=== PATIENT | male | born 1980 | race Caucasian/White ===

== ENCOUNTER 2017-02-17 00:27 | Emergency (ER) | payer OTHER ==
[~2017-02-17] VITALS: Ht 175.3 cm; Wt 99.8 kg
--- NOTE | 2017-02-17 00:29 | ER Report ---
History and Physical Time Seen By MD: 00:43 HPI/ROS CHIEF COMPLAINT: Left lower leg injury HISTORY OF PRESENT ILLNESS: 36-year-old male presents ambulatory to the ER complaining of left lower leg pain. He states he was horsing around with friends when he lost his balance and fell to the ground injuring his left leg. He notes pain on the lateral side of his leg. He notes pain with ambulating. Patient notes no swelling. He denies any other injuries. Allergies: Uncoded Allergies: Hayfever (Allergy, Mild, UNKNOWN, 05/08/11) Home Meds Reported Medications Dexlansoprazole (DEXILANT) 30 Mg Cap., 30 MG PO 02/17/17 Montelukast Sodium (SINGULAIR) 10 Mg Tablet, 1 TAB PO QDAY, TAB 02/17/17 Reviewed Nurses Notes: Yes Old Medical Records Reviewed: Yes Constitutional Vital Sign - Last 24 Hours 02/17/17 02/17/17 02/17/17 02/17/17 00:33 00:34 00:57 01:00 Temp 97.8 Pulse 99 90 Resp 19 B/P (MAP) 119/69 119/69 (86) 122/79 (93) Pulse Ox 98 91 O2 Delivery Room Air 02/17/17 01:30 B/P (MAP) 105/70 (82) Physical Exam General appearance: Mild distress Respiratory: Chest is non tender, lungs are clear to auscultation. Cardiac: Regular rate and rhythm Extremities: Examination of the left lower extremity reveals a neurovascularly intact foot. There is no soft tissue swelling or deformity. The ankle is unremarkable and nontender. There is pain up the lateral aspect of the lower extremity to the fibular head. There is extreme tenderness on palpation of the lateral compartment. There is no Homans sign. There is no signs of Achilles rupture DIFFERENTIAL DIAGNOSIS: After history and physical exam differential diagnosis was considered for sprain, strain, fracture, dislocation, contusion Medical Decision Making ED Course/Re-evaluation ED Course Patient was admitted to an examination room. H&P was done. The differential diagnoses was considered. On clinical examination. Patient has tenderness in the lateral compartment. , There is no bony tenderness. I did not feel x-rays would be of any diagnostic benefit. I suspect she suffered a significant strain to the muscles in that group. Patient's placed in an Christiano wrap. He is medicated with Percocet and ibuprofen. He is advised to conservative treatment plan. He is advised to follow-up with primary care if unimproved in 3-5 days. Decision to Disposition Date: Feb 17, 2017 Decision to Disposition Time: 01:11 Depart Departure Latest Vital Signs Vital Signs Date Time Temp Pulse Resp B/P (MAP) Pulse Ox O2 Delivery O2 Flow Rate FiO2 02/17/17 01:30 105/70 (82) 02/17/17 00:57 90 91 02/17/17 00:33 97.8 19 Room Air Impression: Primary Impression: Muscle strain of lower leg Condition: Improved Disposition: HOME OR SELF-CARE Referrals: NISH FRANCIS DO (PCP) Patient Instructions: Muscle Strain (ED) Additional Instructions: Take ibuprofen 200 mg 3 tablets 3 times a day with food Wear an Christiano wrap to compress the muscles until they heal for 3-5 days Apply ice to the affected area for 2 days. Follow-up with primary care if unimproved in 4-5 days Problem Qualifiers Primary Impression: Muscle strain of lower leg Encounter type: initial encounter Laterality: left Qualified Codes: S86.912A - Strain of unspecified muscle(s) and tendon(s) at lower leg level, left leg, initial encounter YOBANY ARREDONDO DO Feb 17, 2017 00:29
[2017-02-17] MEDS ORDERED: MONT10TA PO (00:47)
[2017-02-17] MEDS ORDERED: DEXL30CA5 PO (00:47)
[2017-02-17] MEDS ORDERED: IBUPROFEN 600 MG TAB PO ONE (01:05)
[2017-02-17] MEDS ORDERED: oxyCODONE/ACETAMIN 5/325MG TH 2 TAB/BOTTLE PO ONE (01:20)
[2017-02-17 01:30] VITALS: BP 105/70
== END 2017-02-17 01:35 | disposition home or self-care (01) ==
LOC: ER 00:32
DX: S86.912A Strain of unspecified muscle(s) and tendon(s) at lower leg level, left leg, initial encounter (principal); W18.30XA Fall on same level, unspecified, initial encounter; Y93.83 Activity, rough housing and horseplay
CPT/HCPCS: 99282

== ENCOUNTER → 2017-02-21 | Outpatient (CLI) | payer OTHER ==
[~2017-02-21] MED LIST: DEXL30CA5 PO; MONT10TA PO
[2017-02-21 09:45] LABS: PLATELET COUNT, AUTOMATED 223 K/uL (150-450)
--- NOTE | 2017-02-21 10:19 | EKG ---
FACILITY: [facility] PATIENT NAME: TONNY MILLER : [id number] MR: [id number] V: [id number] EXAM DATE: ORDERING PHYSICIAN: HELADIO MCKEON TECHNOLOGIST: MISSY Test Reason : PRE-OP Blood Pressure : / mmHG Vent. Rate : 076 BPM Atrial Rate : 076 BPM P-R Int : 152 ms QRS Dur : 084 ms QT Int : 376 ms P-R-T Axes : 041 031 039 degrees QTc Int : 423 ms Normal sinus rhythm with sinus arrhythmia Normal ECG No previous ECGs available Confirmed by HELADIO LEWIS ([id number]) on 02/21/2017 1:52:57 PM Referred By: LINDA Confirmed By:HELADIO LEWIS
--- NOTE | 2017-02-21 10:22 | RADIOLOGY IMAGING REPORT ---
[facility]AC[facility] PATIENT NAME: Durga Seth : 1980 MR: [id number] V: [id number] EXAM DATE: ORDERING PHYSICIAN: HELADIO MCKEON TECHNOLOGIST: Location: [facility] Patient: Durga Seth : 1980 Visit/Account:[id number] Date of Sevice: 02/21/2017 Exam type: CHEST PA AND LAT History: Pre-op chest, cough, asthma, sleep apnea, nonsmoker Comparison: None. Findings: The lungs are free of acute effusions, infiltrates or edema. There is no evidence of pneumothorax or pneumomediastinum. Cardiac silhouette is normal. The trachea is in midline. IMPRESSION: 1. No acute cardiopulmonary process is seen Report Dictated By: Lubna Quintero MD at 02/21/2017 10:17 AM Report E-Signed By: Lubna Quintero MD at 02/21/2017 10:18 AM WSN:[email or web address]
== END ==
LOC: RAD 09:29
PROVIDERS: ATTEND Anesthesiology
DX: Z01.812 Encounter for preprocedural laboratory examination (principal); Z01.810 Encounter for preprocedural cardiovascular examination; Z01.818 Encounter for other preprocedural examination; S82.402A Unspecified fracture of shaft of left fibula, initial encounter for closed fracture; R05 Cough
CPT/HCPCS: 36415; 71046; 85025; 93005

== ENCOUNTER → 2018-01-09 | Outpatient (CLI) | payer OTHER ==
--- NOTE | 2018-01-09 16:03 | EKG ---
FACILITY: [facility] PATIENT NAME: TONNY MILLER : [id number] MR: [id number] V: [id number] EXAM DATE: ORDERING PHYSICIAN: HELADIO MCKEON TECHNOLOGIST: Test Reason : Pre-op Blood Pressure : / mmHG Vent. Rate : 092 BPM Atrial Rate : 092 BPM P-R Int : 164 ms QRS Dur : 102 ms QT Int : 354 ms P-R-T Axes : 052 031 046 degrees QTc Int : 437 ms Normal sinus rhythm Incomplete right bundle branch block Normal ECG No previous ECGs available Confirmed by HELADIO LEWIS ([id number]) on 01/09/2018 6:36:42 PM Referred By: Confirmed By:HELADIO LEWIS
== END ==
LOC: LAB 15:44
PROVIDERS: ATTEND Anesthesiology
DX: Z01.810 Encounter for preprocedural cardiovascular examination (principal); Z01.812 Encounter for preprocedural laboratory examination; Z98.890 Other specified postprocedural states; I45.19 Other right bundle-branch block
CPT/HCPCS: 36415; 82040; 82247; 82310; 82374; 82435; 82565; 82947; 84075; 84132; 84155; 84295; 84450; 84460; 84520; 93005

== ENCOUNTER 2018-02-02 13:58 | Emergency (ER) | payer OTHER ==
--- NOTE | 2018-02-02 14:03 | ER Report ---
History and Physical Time Seen By MD: 14:03 HPI/ROS 37-year-old otherwise healthy male who presents to the emergency department with stuttering chest pain for the past 24 hours. He does state that he has a history of asthma. He does not smoke cigarettes. His dad of an PA at age 61, but did smoke cigarettes. He denies cough, fever, or chills. No trauma. He works as a court administrator, and states that he has not been overworked stressed more than usual. Allergies: Uncoded Allergies: Hayfever (Allergy, Mild, UNKNOWN, 05/08/11) Home Meds Reported Medications Ketorolac Tromethamine (KETOROLAC TROMETHAMINE) 10 Mg Tab, 10 MG PO Q6H, TAB 02/02/18 Dexlansoprazole (DEXILANT) 30 Mg Cap., 30 MG PO 02/02/18 Tramadol Hcl (TRAMADOL HCL) 50 Mg Tablet, 50-100 MG PO Q4-6H, TAB 02/02/18 Dexlansoprazole (DEXILANT) 30 Mg Cap., 30 MG PO 02/17/17 Montelukast Sodium (SINGULAIR) 10 Mg Tablet, 1 TAB PO QDAY, TAB 02/17/17 Hx Substance Use Disorder: No Hx Alcohol Use: Yes Constitutional Vital Sign - Last 24 Hours 02/02/18 02/02/18 02/02/18 14:08 17:47 17:47 Temp 97.6 Pulse 93 61 Resp 14 20 B/P (MAP) 121/87 Pulse Ox 92 98 O2 Delivery Room Air Room Air Physical Exam General Appearance: The patient is alert, has no immediate need for airway protection and no current signs of toxicity. Eyes: Pupils equal and round no injection. Respiratory: Chest is non tender, lungs are clear to auscultation. Cardiac: regular rate and rhythm Gastrointestinal: Abdomen is soft and non tender, no masses, bowel sounds normal. Musculoskeletal: Neck: Neck is supple and non tender. Extremities have full range of motion and are non tender. Skin: No rashes or lesions. DIFFERENTIAL DIAGNOSIS: After history and physical exam differential diagnosis was considered for chest pain including but not limited to myocardial ischemia, pericarditis pulmonary embolus, chest wall pain, pleural inflammation and pulmonary infectious causes. Medical Decision Making Data Points Result Diagram: 02/02/18 1415 02/02/18 1415 Laboratory Hematology Test 02/02/18 14:15 02/02/18 17:00 Red Blood Count 6.06 M/uL (4.00-5.60) Mean Corpuscular Volume 84.6 fL (80.0-96.0) Mean Corpuscular Hemoglobin 28.8 pg (26.0-33.0) Mean Corpuscular Hemoglobin Concent 34.0 g/dL (32.0-36.0) Red Cell Distribution Width 13.0 % (11.5-14.5) Mean Platelet Volume 8.3 fL (7.2-11.1) Neutrophils (%) (Auto) 68.4 % (39.4-72.5) Lymphocytes (%) (Auto) 23.1 % (17.6-49.6) Monocytes (%) (Auto) 6.3 % (4.1-12.4) Eosinophils (%) (Auto) 1.8 % (0.4-6.7) Basophils (%) (Auto) 0.4 % (0.3-1.4) Nucleated RBC Relative Count (auto) 0.0 /100WBC Neutrophils # (Auto) 5.9 K/uL (2.0-7.4) Lymphocytes # (Auto) 2.0 K/uL (1.3-3.6) Monocytes # (Auto) 0.5 K/uL (0.3-1.0) Eosinophils # (Auto) 0.2 K/uL (0.0-0.5) Basophils # (Auto) 0.0 K/uL (0.0-0.1) Nucleated RBC Absolute Count (auto) 0.00 K/uL D-Dimer Quantitative (PE/DVT) 0.31 ug/ml (0-0.50) Sodium Level 139 mmol/L (137-145) Potassium Level 4.0 mmol/L (3.5-5.0) Chloride Level 104 mmol/L (98-107) Carbon Dioxide Level 25 mmol/L (22-30) Blood Urea Nitrogen 20 mg/dl (9-21) Creatinine 1.00 mg/dl (0.66-1.25) Glomerular Filtration Rate Calc > 60.0 Random Glucose 124 mg/dl (75-110) Calcium Level 9.3 mg/dl (8.4-10.2) Total Bilirubin 0.4 mg/dl (0.2-1.3) Aspartate Amino Transf (AST/SGOT) 30 U/L (0-35) Alanine Aminotransferase (ALT/SGPT) 48 U/L (0-56) Alkaline Phosphatase 56 U/L (0-126) Total Protein 8.0 g/dl (6.3-8.2) Albumin 4.4 g/dl (3.5-5.0) Troponin I < 0.012 ng/ml Chemistry Test 02/02/18 14:15 02/02/18 17:00 White Blood Count 8.6 k/uL (4.5-11.0) Red Blood Count 6.06 M/uL (4.00-5.60) Hemoglobin 17.4 g/dL (14.0-18.0) Hematocrit 51.2 % (42.0-52.0) Mean Corpuscular Volume 84.6 fL (80.0-96.0) Mean Corpuscular Hemoglobin 28.8 pg (26.0-33.0) Mean Corpuscular Hemoglobin Concent 34.0 g/dL (32.0-36.0) Red Cell Distribution Width 13.0 % (11.5-14.5) Platelet Count 249 K/uL (150-450) Mean Platelet Volume 8.3 fL (7.2-11.1) Neutrophils (%) (Auto) 68.4 % (39.4-72.5) Lymphocytes (%) (Auto) 23.1 % (17.6-49.6) Monocytes (%) (Auto) 6.3 % (4.1-12.4) Eosinophils (%) (Auto) 1.8 % (0.4-6.7) Basophils (%) (Auto) 0.4 % (0.3-1.4) Nucleated RBC Relative Count (auto) 0.0 /100WBC Neutrophils # (Auto) 5.9 K/uL (2.0-7.4) Lymphocytes # (Auto) 2.0 K/uL (1.3-3.6) Monocytes # (Auto) 0.5 K/uL (0.3-1.0) Eosinophils # (Auto) 0.2 K/uL (0.0-0.5) Basophils # (Auto) 0.0 K/uL (0.0-0.1) Nucleated RBC Absolute Count (auto) 0.00 K/uL D-Dimer Quantitative (PE/DVT) 0.31 ug/ml (0-0.50) Glomerular Filtration Rate Calc > 60.0 Calcium Level 9.3 mg/dl (8.4-10.2) Total Bilirubin 0.4 mg/dl (0.2-1.3) Aspartate Amino Transf (AST/SGOT) 30 U/L (0-35) Alanine Aminotransferase (ALT/SGPT) 48 U/L (0-56) Alkaline Phosphatase 56 U/L (0-126) Total Protein 8.0 g/dl (6.3-8.2) Albumin 4.4 g/dl (3.5-5.0) Troponin I < 0.012 ng/ml Coagulation Test 02/02/18 14:15 D-Dimer Quantitative (PE/DVT) 0.31 ug/ml EKG/Imaging EKG Interpretation 12 lead EKG: Rhythm: normal sinus rhythm [place]: normal QRS: normal ST segments: normal Imaging X-ray: CXR was obtained. I viewed the images myself on the PACS system. My interpretation of the images is: normal The radiologist interpretation had no clinically significant variation from this interpretation. ED Course/Re-evaluation ED Course 37 y/o male with chest pain since yesterday. No smoking history. Chest pain as tightness. He has a normal EKG and 2 normal troponins after 12 hours of chest pain. I also gave him a DuoNeb due to his history of asthma. Do not think this is cardiac chest pain. Not consistent with a PE. D-dimer is negative. I told him if the pain returns tomorrow he should return to the emergency department, and I will set him up for a treadmill stress test. He can otherwise follow-up with his primary care physician. Decision to Disposition Date: Feb 02, 2018 Decision to Disposition Time: 18:21 Depart Departure Latest Vital Signs Vital Signs Date Time Temp Pulse Resp B/P (MAP) Pulse Ox O2 Delivery O2 Flow Rate FiO2 02/02/18 17:47 61 20 02/02/18 17:47 98 Room Air 02/02/18 14:08 97.6 121/87 Impression: Primary Impression: Chest pain in adult Condition: Improved Disposition: HOME OR SELF-CARE Referrals: NISH FRANCIS DO (PCP) Patient Instructions: Chest Pain (ED) Additional Instructions: Call Dr. Andrew in the ER tomorrow if your pain continues. The number is [phone]. TR ANDREW MD Feb 02, 2018 14:03
[2018-02-02] MEDS ORDERED: KET10 PO (14:11)
[2018-02-02] MEDS ORDERED: DEXL30CA5 PO (14:11)
[2018-02-02] MEDS ORDERED: TRAM-420 PO (14:11)
[2018-02-02] MEDS ORDERED: NS(*) 0.9% 1000 ML BAG 1,000 ML IV ONE (14:20)
[2018-02-02] MEDS ORDERED: ASPIRIN 81 MG CHEW CHEW ONE (14:20)
--- NOTE | 2018-02-02 14:28 | EKG ---
FACILITY: [facility] PATIENT NAME: TONNY MILLER : [id number] MR: [id number] V: [id number] EXAM DATE: ORDERING PHYSICIAN: TR ANDREW TECHNOLOGIST: COTY Srinivasan Reason : CP Blood Pressure : / mmHG Vent. Rate : 082 BPM Atrial Rate : 082 BPM P-R Int : 164 ms QRS Dur : 090 ms QT Int : 358 ms P-R-T Axes : 038 044 039 degrees QTc Int : 418 ms Normal sinus rhythm Incomplete right bundle branch block When compared with ECG of 09-JAN-2018 15:53, No significant change was found Confirmed by HELADIO LEWIS ([id number]) on 02/03/2018 6:26:04 AM Referred By: KAMRAN Confirmed By:HELADIO LEWIS
[2018-02-02 14:32] LABS: PLATELET COUNT, AUTOMATED 249 K/uL (150-450)
--- NOTE | 2018-02-02 15:00 | RADIOLOGY IMAGING REPORT ---
[place] [facility] [place] NAME: Durga Seth : 1980 MR: [id number] V: [id number] EXAM DATE: ORDERING PHYSICIAN: TR ANDREW TECHNOLOGIST: Location: [facility] [place] Patient: Durga Seth : 1980 Visit/Account:[id number] Date of Sevice: 02/02/2018 EXAMINATION: Chest 2 Views HISTORY: Chest pain. COMPARISON: 02/21/2017. FINDINGS: The lungs are clear. No focal consolidation or pleural fluid. No pneumothorax. Normal cardiomedias tinal silhouette, with normal heart size and pulmonary vascularity. Visualized osseous structures ar e unremarkable. IMPRESSION: Negative chest. Report Dictated By: Victor Manuel Ivey MD at 02/02/2018 2:55 PM Report E-Signed By: Victor Manuel Ivey MD at 02/02/2018 2:56 PM WSN:[email or web address]
[2018-02-02] MEDS ORDERED: ALBUTEROL/IPRATROPIUM 3 ML NEB NEB ONE (17:35)
[2018-02-02] MEDS ORDERED: DEXAMETHASONE SOD PHOS 10MG/ML IVP ONE (17:35)
[2018-02-02 18:00] VITALS: BP 116/74
== END 2018-02-02 18:38 | disposition home or self-care (01) ==
LOC: ER 14:09
DX: R07.9 Chest pain, unspecified (principal)
CPT/HCPCS: 71046; 84484; 85025; 85379; 93005; 94640; 96361; 96374; 99284; J1100; J7030; J7620; 82040; 82247; 82310; 82374; 82435; 82565; 82947; 84075; 84132; 84155; 84295; 84450; 84460; 84520